=== PATIENT | male | born 1980 | race Caucasian/White ===

== ENCOUNTER 2023-05-08 16:01 | Emergency (ER) | payer MEDICAID ==
[2023-05-08] MEDS ORDERED: Amoxicillin/Clavulanate K 875-125 MG Tab PO ONE (16:40)
[2023-05-08] MEDS ORDERED: Ketorolac 30 MG/ML SDV IM ONE (16:40)
== END 2023-05-08 16:53 | disposition home or self-care (01) ==
LOC: FB.ED 16:01
DX: K04.7 Periapical abscess without sinus (principal); K00.7 Teething syndrome; F17.210 Nicotine dependence, cigarettes, uncomplicated; E66.9 Obesity, unspecified; Z68.32 Body mass index [BMI] 32.0-32.9, adult
CPT/HCPCS: 96372; 99282; A9270; J1885